=== PATIENT | female | born 1955 | race Caucasian/White ===

== ENCOUNTER → 2018-02-15 | Outpatient (CLI) | payer OTHER ==
[~2018-02-15] MED LIST: Excedrin Extra1 EACH; Multivitamin1 EAC1; PSEU120ER; Pepcid20 MG PO; SODCHL.65S; VITAMIN B12-FO1 EACH; Zofran8 MG PO
[2018-02-15 10:27] LABS: BASOPHILS ABSOLUTE AUTO 0.02 K/mm3 (0.00-0.23); BASOPHILS PERCENT AUTO 0 % (0-2); EOSINOPHILS PERCENT AUTO 0 % (0-6); Hematocrit 46.5 % (33.0-51.0); Hemoglobin 15.6 g/dL (11.5-16.0); IMMATURE GRAN ABSOLUTE AUTO 0.03 K/mm3 (0.00-0.10); IMMATURE GRAN PERCENT AUTO 0 % (0-1); LYMPHOCYTES ABSOLUTE AUTO 0.41 K/mm3 (0.84-5.20); LYMPHOCYTES PERCENT AUTO 5 % (21-46); MONOCYTES PERCENT AUTO 4 % (4-13); Mean Corpuscular HGB 28.7 pg (26.0-34.0); Mean Corpuscular HGB Conc 33.5 g/dL (31.5-36.5); Mean Corpuscular Volume 86 fL (80-100); Mean Platelet Volume 8.9 fL (9.1-12.4); NEUTROPHILS ABSOLUTE AUTO 7.11 K/mm3 (1.96-9.15); NEUTROPHILS PERCENT AUTO 90 % (41-73); Platelet Count 278 K/mm3 (150-400); RDW Coefficient Variation 12.3 % (11.7-14.2); RDW Standard Deviation 37.9 fL (35.1-46.3); Red Blood Cell Count 5.43 M/mm3 (3.80-5.20); White Blood Cell Count 7.87 K/mm3 (4.00-11.30)
[2018-02-15 10:41] LABS: Alanine Aminotransfer (ALT/SGP 27 U/L (12-78); Albumin, Blood 4.2 g/dL (3.4-5.0); Albumin/Globulin Ratio 1.1 (0.8-1.8); Alk Phos 94 U/L (40-126); Anion Gap 11 mmol/L (6-16); Aspartate Aminotrans (AST/SGOT 21 U/L (12-37); Bilirubin, Total 0.8 mg/dL (0.1-1.0); Blood Urea Nitrogen 19 mg/dL (8-24); Bun/Creatinine Ratio 26.4 (12.0-20.0); CO2, Blood 27 mmol/L (21-32); Calcium, Blood 9.2 mg/dL (8.5-10.1); Chloride, Blood 98 mmol/L (98-108); Creatinine, Blood 0.72 mg/dL (0.40-1.00); Globulin, Blood 3.8 g/dL (2.2-4.0); Glomerular Filtration Rate >60 (60-); Glucose, Blood 117 mg/dL (70-99); Potassium, Blood 3.5 mmol/L (3.5-5.5); Sodium, Blood 136 mmol/L (136-145)
== END ==
LOC: LAB SHORT 10:24 → LAB EV 10:24
PROVIDERS: Family Medicine
DX: R11.2 Nausea with vomiting, unspecified (principal)
CPT/HCPCS: 80053; 85025

== ENCOUNTER 2018-02-16 18:16 | Emergency (ER) | payer OTHER ==
[~2018-02-16] VITALS: Ht 165.1 cm; Wt 77.1 kg
[~2018-02-16 18:16] MED LIST changes: -Pepcid20 MG PO; -Zofran8 MG PO
[2018-02-16 19:15] LABS: BASOPHILS ABSOLUTE AUTO 0.03 K/mm3 (0.00-0.23); BASOPHILS PERCENT AUTO 1 % (0-2); EOSINOPHILS ABSOLUTE AUTO 0.03 K/mm3 (0.00-0.68); EOSINOPHILS PERCENT AUTO 1 % (0-6); Hematocrit 46.6 % (33.0-51.0); Hemoglobin 15.5 g/dL (11.5-16.0); IMMATURE GRAN ABSOLUTE AUTO 0.01 K/mm3 (0.00-0.10); IMMATURE GRAN PERCENT AUTO 0 % (0-1); LYMPHOCYTES ABSOLUTE AUTO 2.09 K/mm3 (0.84-5.20); LYMPHOCYTES PERCENT AUTO 34 % (21-46); MONOCYTES ABSOLUTE AUTO 0.84 K/mm3 (0.16-1.47); MONOCYTES PERCENT AUTO 14 % (4-13); Mean Corpuscular HGB 28.9 pg (26.0-34.0); Mean Corpuscular HGB Conc 33.3 g/dL (31.5-36.5); Mean Corpuscular Volume 87 fL (80-100); Mean Platelet Volume 9.1 fL (9.1-12.4); NEUTROPHILS ABSOLUTE AUTO 3.07 K/mm3 (1.96-9.15); NEUTROPHILS PERCENT AUTO 51 % (41-73); Platelet Count 274 K/mm3 (150-400); RDW Coefficient Variation 11.9 % (11.7-14.2); Red Blood Cell Count 5.37 M/mm3 (3.80-5.20); White Blood Cell Count 6.07 K/mm3 (4.00-11.30)
[2018-02-16 19:34] LABS: Alanine Aminotransfer (ALT/SGP 28 U/L (12-78); Albumin, Blood 3.9 g/dL (3.4-5.0); Alk Phos 91 U/L (50-136); Anion Gap 8 mmol/L (6-16); Aspartate Aminotrans (AST/SGOT 20 U/L (12-37); Blood Urea Nitrogen 11 mg/dL (8-24); Bun/Creatinine Ratio 16.8 (12.0-20.0); CO2, Blood 26 mmol/L (21-32); Calcium, Blood 8.8 mg/dL (8.5-10.1); Chloride, Blood 104 mmol/L (98-108); Creatinine, Blood 0.66 mg/dL (0.40-1.00); Globulin, Blood 3.9 g/dL (2.2-4.0); Glomerular Filtration Rate >60 (60-); Glucose, Blood 93 mg/dL (70-99); Potassium, Blood 3.4 mmol/L (3.5-5.5); Sodium, Blood 138 mmol/L (136-145); Total Protein, Blood 7.8 g/dL (6.4-8.2)
[2018-02-16 19:58] LABS: Appearance, Urine Clear (Clear); Bilirubin, Urine Neg (Neg); Blood, Urine 4+ (Neg); Color, Urine Yellow (P-Yellow); Glucose Qualitative, Urine Neg (Neg); Ketones, Urine 3+ (Neg); Leukocyte Esterase, Urine 2+ (Neg); Nitrite, Urine Neg (Neg); Protein, Urine 2+ (Neg); Specific Gravity, Urine 1.015 (1.003-1.022); Urobilinogen, Urine 1+ (Normal)
[2018-02-16 20:21] LABS: Bacteria Not Seen /hpf; Mucus Light (0-Heavy); Squamous Epithelial Cells Few /hpf (Few)
[2018-02-16] MEDS ORDERED: Zofran8 MG PO (20:25)
[2018-02-16] MEDS ORDERED: Pepcid20 MG PO (20:25)
== END 2018-02-16 20:59 | disposition home or self-care (01) ==
LOC: ER 18:16
PROVIDERS: Emergency Medicine
DX: R31.9 Hematuria, unspecified (principal); R11.10 Vomiting, unspecified; R19.7 Diarrhea, unspecified; Z88.2 Allergy status to sulfonamides; Z88.5 Allergy status to narcotic agent; Z88.8 Allergy status to other drugs, medicaments and biological substances
CPT/HCPCS: 36415; 80053; 81001; 82272; 85025; 86850; 86900; 86901; 87086; 93005; 93010; 99283-25

== ENCOUNTER 2019-10-09 07:44 | Day surgery (SDC) | payer OTHER ==
[~2019-10-09] VITALS: Ht 165.1 cm; Wt 78.6 kg
[~2019-10-09 07:44] MED LIST changes: +EXTRA PAIN REL1 EAC2 PO; +OCEAN104 ML; +Pepcid20 MG PO; +Zofran8 MG PO
[2019-10-09] MEDS ORDERED: CAMBIA50 MG (08:12)
== END 2019-10-09 10:00 | disposition home or self-care (01) ==
LOC: ORSCSDS 07:44
PROVIDERS: Internal Medicine Gastroenterology
PROC: 0DJD8ZZ Inspection of Lower Intestinal Tract, Via Natural or Artificial Opening Endoscopic (ICD-10-PCS; principal; 2019-10-09 09:00)
DX: Z12.11 Encounter for screening for malignant neoplasm of colon (principal); Z86.010 Personal history of colon polyps
CPT/HCPCS: J0330; J0461; J2405; J2704; J7120

== ENCOUNTER 2022-10-20 14:46 | Emergency (ER) | payer MEDICARE, OTHER ==
[~2022-10-20] VITALS: Ht 165.1 cm; Wt 70.8 kg
[~2022-10-20 14:46] MED LIST changes: +CAMBIA50 MG
[2022-10-20 16:43] LABS: Source, Urine Clean Catch
[2022-10-20 16:51] LABS: Appearance, Urine Clear (Clear); Bilirubin, Urine Neg (Neg); Blood, Urine Neg (Neg); Glucose Qualitative, Urine Neg (Neg); Ketones, Urine 2+ (Neg); Leukocyte Esterase, Urine Neg (Neg); Nitrite, Urine Neg (Neg); Protein, Urine Neg (Neg); Specific Gravity, Urine 1.015 (1.003-1.022); Urobilinogen, Urine NORM (Normal)
[2022-10-20 16:55] LABS: BASOPHILS ABSOLUTE AUTO 0.05 K/mm3 (0.00-0.23); BASOPHILS PERCENT AUTO 1 % (0-2); EOSINOPHILS ABSOLUTE AUTO 0.12 K/mm3 (0.00-0.68); EOSINOPHILS PERCENT AUTO 2 % (0-6); Hematocrit 44.4 % (33.0-51.0); Hemoglobin 14.6 g/dL (11.5-16.0); IMMATURE GRAN ABSOLUTE AUTO 0.01 K/mm3 (0.00-0.10); IMMATURE GRAN PERCENT AUTO 0 % (0-1); LYMPHOCYTES ABSOLUTE AUTO 1.86 K/mm3 (0.84-5.20); LYMPHOCYTES PERCENT AUTO 36 % (21-46); MONOCYTES ABSOLUTE AUTO 0.46 K/mm3 (0.16-1.47); MONOCYTES PERCENT AUTO 9 % (4-13); Mean Corpuscular HGB 29.2 pg (26.0-34.0); Mean Corpuscular HGB Conc 32.9 g/dL (31.5-36.5); Mean Corpuscular Volume 89 fL (80-100); Mean Platelet Volume 10.1 fL (9.1-12.4); NEUTROPHILS ABSOLUTE AUTO 2.63 K/mm3 (1.96-9.15); NEUTROPHILS PERCENT AUTO 51 % (41-73); Platelet Count 255 K/mm3 (150-400); RDW Standard Deviation 38.7 fL (35.1-46.3); White Blood Cell Count 5.13 K/mm3 (4.00-11.30)
[2022-10-20 17:10] LABS: Color, Urine Pale Yellow (P-Yellow)
[2022-10-20 17:12] LABS: Albumin, Blood 4.2 g/dL (3.4-5.0); Albumin/Globulin Ratio 1.4 (0.8-1.8); Bilirubin, Total 0.5 mg/dL (0.1-1.0); Bun/Creatinine Ratio 22.3 (12.0-20.0); Creatinine, Blood 0.63 mg/dL (0.40-1.00); Globulin, Blood 3.1 g/dL (2.2-4.0); Potassium, Blood 3.6 mmol/L (3.5-5.5); Total Protein, Blood 7.3 g/dL (6.4-8.2)
[2022-10-20 21:30] VITALS: BP 127/86
[2022-10-21] MEDS ORDERED: AIMOVIG AU140 MG/1 M (07:22)
== END 2022-10-20 21:38 | disposition home or self-care (01) ==
LOC: ER 14:46
PROVIDERS: Student in an Organized Health Care Education/Training Program
DX: K80.20 Calculus of gallbladder without cholecystitis without obstruction (principal); Z88.2 Allergy status to sulfonamides; Z88.5 Allergy status to narcotic agent; Z88.8 Allergy status to other drugs, medicaments and biological substances; Z79.899 Other long term (current) drug therapy; Z79.82 Long term (current) use of aspirin
CPT/HCPCS: 76705; 80053; 81003; 83690; 85025; 99284-25

== ENCOUNTER 2023-03-23 08:25 | Emergency (ER) | payer MEDICARE, OTHER ==
[~2023-03-23] VITALS: Ht 165.1 cm; Wt 74.8 kg
[~2023-03-23 08:25] MED LIST changes: +AIMOVIG AU140 MG/1 M
[2023-03-23] MEDS ORDERED: Ketorolac Tromethamine 30mg Vial IM ONE (09:05)
[2023-03-23] MEDS ORDERED: PREG25 PO (09:12)
[2023-03-23 09:15] VITALS: BP 158/92
== END 2023-03-23 09:45 | disposition home or self-care (01) ==
LOC: ER 08:25
DX: M54.10 Radiculopathy, site unspecified (principal); Z88.2 Allergy status to sulfonamides; Z88.5 Allergy status to narcotic agent; Z88.8 Allergy status to other drugs, medicaments and biological substances
CPT/HCPCS: 96372; 99283-25; J1885

== ENCOUNTER 2024-04-21 07:27 | Day surgery (SDC) | payer MEDICARE, OTHER ==
[2024-04-21] VITALS (12 sets, daily range): BP systolic 11–157; BP diastolic 59–97
[~2024-04-21] VITALS: Ht 165.1 cm; Wt 77.3 kg
[~2024-04-21 07:27] MED LIST changes: -AIMOVIG AU140 MG/1 M; +AIMOVIG AU140 MG/1 M SC; +CefOXitin Sodium 2,000 MG in NS 50 ML IV SCH; +ERGO400 PO; +LORA10ER PO; +Lactated Ringer's 1,000 ML IV SCH; +PREG25 PO; +PSEU120ER PO; +QUERCETIN500 MG PO; +RED YEAST RICE55 MG; +RIZATRIPTAN10 MG SL; +SODIUM CHLORIDE; +Triamcinolone A15 G3 TOP; +VITAMIN B-1250 MG PO; +ZINC220
[2024-04-21] MEDS ORDERED: Bupivacaine 0.5% HCl 5 MG/ML 30MLVIAL ONE (08:28)
[2024-04-21] MEDS ORDERED: Acetaminophen 500 MG Tab PO ONE (08:35)
[2024-04-21] MEDS ORDERED: Ondansetron HCl 2 MG / ML 2ML Vial ONE ×2 (08:41→11:27)
[2024-04-21] MEDS ORDERED: Dexamethasone Sod Phos 10 MG/ML 1ML VIAL ONE (08:41)
[2024-04-21] MEDS ORDERED: Ketorolac Tromethamine 30mg Vial ONE (08:41)
[2024-04-21] MEDS ORDERED: FentaNYL Citrate 50 MCG/ML 2 ML Injection ONE ×2 (08:42→10:50)
[2024-04-21] MEDS ORDERED: propofoL 20 ML IV ONE ×2 (08:42→10:14)
[2024-04-21] MEDS ORDERED: Sugammadex Sodium 200 MG/2ML SDV (100 MG/ML) ONE (08:42)
[2024-04-21] MEDS ORDERED: HYDROmorphone HCl/Pf 1MG SYR ONE (08:42)
[2024-04-21] MEDS ORDERED: Rocuronium Bromide 10 MG/ML 5ML Injection IV ONE ×2 (08:44)
[2024-04-21] MEDS ORDERED: Lidocaine HCl 2% 20 ML MDV ONE (08:46)
[2024-04-21] MEDS ORDERED: HYDROmorphone HCl/Pf 1MG SYR IV PRN (09:45)
--- NOTE | 2024-04-21 10:03 | NUR ---
04/21/24 1003 Katherine Asher 5ML ISOVUE USED BY DR GANDARA
[2024-04-21] MEDS ORDERED: HYDROcodone 5-APAP 325 TAB PO PRN (10:55)
--- NOTE | 2024-04-21 11:14 | NUR ---
REPORT RECEIVED FROM CHULA HONEYCUTT. VSS. PT ON RA. PT A&OX4. PT ABLE TO REPOSITION SELF IN BED. PT REQUESTING PO FOOD AND FLUIDS AND TOLERATING THEM WELL. PT HAS 4 INCISION SITES TO ABDOMEN COVERED WITH GAUZE/TEGADERM THAT ARE ALL CDI. PT REPORTS 4/10 ABDOMINAL PAIN. PT DENIES NAUSEA OR OTHER DISCOMFORTS. PT SPOUSE AT BEDSIDE.
[2024-04-21] MEDS ORDERED: Ondansetron HCl 2 MG / ML 2ML Vial IV ONE (11:20)
--- NOTE | 2024-04-21 11:59 | NUR ---
Patient up to Ambulate independently. Gait steady. VSS AND CONSISTENT WITH PT BASELINE. PT REPORTS NAUSEA HAS SUBSIDED AND PAIN HAS MOVED FROM A 6 TO A 2. PT VERBALIZES READINESS TO GO HOME. Discharge instructions reviewed with patient AND HER SPOUSE. Patient AND HER SPOUSE verbalize understanding. Copy given to patient to take home. Dressing to procedure site clean, dry, intact with no visible drainage, swelling, erythema or bruising noted. Patient States Post-Procedure ride home has been arranged. Discharged via wheelchair to private car for ride home. PT BELONGINGS RETURNED TO PT.
--- NOTE | 2024-04-21 12:01 | NUR ---
1130: PT N/V. MEDICATED WITH 4MG IV ZOFRAN PER ANESTHESIA ORDERS.
== END 2024-04-21 11:57 | disposition home or self-care (01) ==
LOC: ORSCMMR 07:27 → ORD 08:45 → ORSCMMR 08:45
PROVIDERS: Surgery
PROC: BF031ZZ Plain Radiography of Gallbladder and Bile Ducts using Low Osmolar Contrast (ICD-10-PCS; principal; 2024-04-21 08:45)
PROC: 0FT44ZZ Resection of Gallbladder, Percutaneous Endoscopic Approach (ICD-10-PCS; principal; 2024-04-21 08:45)
DX: K80.10 Calculus of gallbladder with chronic cholecystitis without obstruction (principal)
CPT/HCPCS: 74300; 88304; A9270; C1894; J0694; J1100; J1171; J1885; J2405; J2704; J3010; J7120